=== PATIENT | female | born 1955 | race American Indian/Alaskan Native ===

== ENCOUNTER 2019-02-10 01:02 | Emergency (ER) | payer MEDICARE, OTHER ==
[2019-02-10 01:44] VITALS: BP 164/93
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
[2019-02-10] MEDS ORDERED: ACETAMINOPHEN 325 MG TAB PO ONE (03:18)
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
== END 2019-02-10 04:55 | disposition other institution (70) ==
LOC: ED 01:02
DX: S06.2X9A Diffuse traumatic brain injury with loss of consciousness of unspecified duration, initial encounter (principal); M19.90 Unspecified osteoarthritis, unspecified site; Z90.710 Acquired absence of both cervix and uterus; Z98.890 Other specified postprocedural states; V89.2XXA Person injured in unspecified motor-vehicle accident, traffic, initial encounter; Y93.89 Activity, other specified; Y92.410 Unspecified street and highway as the place of occurrence of the external cause; Y99.8 Other external cause status
CPT/HCPCS: 70450